=== PATIENT | female | born 1940 | race Caucasian/White ===

== ENCOUNTER 2017-01-04 11:43 | Emergency (ER) | payer OTHER ==
[~2017-01-04] VITALS: Ht 165.1 cm; Wt 88.9 kg
[2017-01-04 13:59] LABS: ABSOLUTE BASOPHIL COUNT 0 /CUMM (0.0-0.2); ABSOLUTE EOSINOPHIL COUNT 0.1 /CUMM (0.0-0.7); ABSOLUTE GRANULOCYTE CT 4.4 /CUMM (1.4-6.5); ABSOLUTE MONOCYTE COUNT 0.5 /CUMM (0.10-0.60); BASOPHIL % 0.1 % (0.0-2.0); EOSINOPHIL % 2.1 % (0-5); GRANULOCYTE % 72.5 % (42.2-75.2); HEMATOCRIT 33.1 % (37-47); MEAN CORPUSCULAR HGB 29.6 PG (27.0-31.0); MEAN CORPUSCULAR HGB CONC 34.6 G/DL (33.0-37.0); MEAN CORPUSCULAR VOLUME 85.7 FL (81.0-99.0); MEAN PLATELET VOLUME 7.7 FL (7.4-10.4); RED BLOOD CELL CT 3.86 /CUMM (4.20-5.40); WHITE BLOOD CELL COUNT 6.1 /CUMM (4.8-10.8)
[2017-01-04 14:19] LABS: PLATELET COUNT 154 /CUMM (130-400)
--- NOTE | 2017-01-04 14:40 | CT SCAN REPORT ---
EXAMINATION: CT HEAD WITHOUT CONTRAST CLINICAL INFORMATION: Altered mental status. COMPARISON: None. TECHNIQUE: Contiguous axial imaging was performed from the skull base to vertex without intravenous administration of contrast. DLP: 600 mGy-cm FINDINGS: Noncontrast CT imaging of the brain demonstrates age-appropriate generalized parenchymal volume loss with proportional prominence of the sulci and ventricles. There is no acute intracranial hemorrhage, mass or mass effect or abnormal extra-axial fluid collections. There are no focal areas of hypoattenuation in a vascular distribution to suggest acute transcortical ischemia. Areas of hypoattenuation within the periventricular and deep cortical white matter are nonspecific but could reflect sequela of mild chronic microvascular ischemia. No acute calvarial abnormality. The mastoid air cells and visualized portions of the paranasal sinuses are well-aerated. IMPRESSION: 1. No acute intracranial abnormality. 2. Generalized parenchymal volume loss and sequela of mild chronic microvascular ischemia.
--- NOTE | 2017-01-04 14:40 | RADIOLOGY REPORT ---
EXAMINATION: XR PORTABLE CHEST CLINICAL INFORMATION: Altered mental status. COMPARISON: None. TECHNIQUE: Portable AP view of the chest was obtained. FINDINGS: The lungs are mildly hypoinflated but clear without focal airspace consolidation. No pleural effusions or pneumothoraces are identified. Cardiomediastinal contours are within normal limits. Soft tissues are unremarkable. No acute osseous abnormality is identified. IMPRESSION: No acute pulmonary process.
--- NOTE | 2017-01-04 14:59 | ED AMS/SEIZURE/WEAK/DIZZY ---
History of Present Illness General Chief Complaint: Female Urogenital Problems Stated Complaint: ? UTI Source: patient, old records Exam Limitations: no limitations Vital Signs & Intake/Output Vital Signs & Intake/Output Vital Signs Date Time Temp Pulse Resp B/P Pulse O2 O2 Flow FiO2 Ox Delivery Rate 01/04 1520 50 100/60 01/04 1520 97.7 52 20 100/60 97 Room Air 01/04 1509 96 Room Air 01/04 1154 96.8 56 18 115/72 95 Room Air Allergies Coded Allergies: Sulfa (Sulfonamide Antibiotics) (Severe, RASH 01/04/17) Tetracyclines (Severe, RASH 01/04/17) bee pollen (Severe, SWELLING 01/04/17) latex (Severe, RASH 01/04/17) Reconcile Medications Aspirin (Aspirin*) 81 MG TAB.CHEW 1 TAB PO DAILY HEART HEALTH (Reported) Clopidogrel Bisulfate (Clopidogrel) 75 MG TABLET 1 TAB PO DAILY BLOOD THINNER (Reported) Cyanocobalamin/FA/Pyridoxine (Folic Acid-Vit B6-Vit B12 Tab) 500 MCG-2.2 MG-25 MG TABLET 1 TAB PO DAILY SUPPLEMENT (Reported) Docusate Sodium (Colace) 100 MG CAPSULE 1 CAP PO DAILY CONSTIPATION (Reported ) Ezetimibe (Zetia) 10 MG TABLET 1 TAB PO DAILY CHOLESTEROL (Reported) Fludrocortisone Acetate 0.1 MG TABLET 1 TAB PO BID UNKNOWN (Reported) Glimepiride 4 MG TABLET 1 TAB PO 1200 DIABETES (Reported) Magnesium Oxide 400 MG TABLET 1 TAB PO BID SUPPLEMENT (Reported) Memantine HCl (Namenda XR) 28 MG CAP.SPR.24 1 CAP PO DAILY DEMENTIA (Reported ) Midodrine HCl 5 MG TABLET 1 TAB PO Q6 HTN (Reported) Pravastatin Sodium 80 MG TABLET 1 TAB PO DAILY CHOLESTEROL (Reported) Sennosides (Senna) 8.6 MG TABLET 1 TAB PO DAILY CONSTIPATION (Reported) Sertraline HCl 100 MG TABLET 1 TAB PO DAILY MENTAL HEALTH (Reported) Triage Note: 76 Y/O FEMALE, WITH HX ALZHEIMERS, PRESENTS WITH WORKFORCE ANALYST FOR EVAL OF ? UTI. WORKFORCE ANALYST STATES HE HAS NOTICED PT IS WEAKER AND THERE IS A STRONG ODOR TO URINE. HE TRIED TO GET A URINE SAMPLE BUT WAS UNSUCCESSFUL AND BELIEVES PT NEEDS TO BE CATHED. PT DENIES COMPLAINTS. WORKFORCE ANALYST DENIES N/V/D OR CHANGES IN APPETITE. DENIES FEVERS. Triage Nurses Notes Reviewed? yes Onset: Abrupt Duration: week(s): (1), constant, continues in ED Timing: recent history Injury Environment: home No Modifying Factors: none HPI: 76-year-old female with a history of Alzheimer's dementia brought to the emergency room for increased confusion has been going on for the past week. Family reports that she's just been more confused in general. She is been making statements that are not making sense in regards to some visual hallucinations. Son denies any fever chills. No vomiting. She is acting appropriate at the moment. There is been no new medication changes. There is been no falls. (SWETHA HUBBARD) Past History Travel History Traveled to [place] past 21 day No Medical History Any Pertinent Medical History? 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 No (SWETHA HUBBARD) Review of Systems Review of Systems Constitutional: Reports: no symptoms. EENTM: Reports: no symptoms. Respiratory: Reports: no symptoms. Cardiovascular: Reports: no symptoms. GI: Reports: no symptoms. Genitourinary: Reports: no symptoms. Musculoskeletal: Reports: no symptoms. Skin: Reports: no symptoms. Neurological/Psychological: Reports: see HPI. Hematologic/Endocrine: Reports: no symptoms. Immunologic/Allergic: Reports: no symptoms. All Other Systems: Reviewed and Negative (SWEHTA HUBBARD) Physical Exam Physical Exam General Appearance: well developed/nourished, no apparent distress, alert Head: atraumatic Eyes: Bilateral: normal appearance, EOMI. Ears, Nose, Throat: normal ENT inspection, hearing grossly normal Neck: normal inspection Respiratory: normal breath sounds, no respiratory distress Cardiovascular: regular rate/rhythm Gastrointestinal: soft, non-tender Back: normal inspection, normal range of motion Extremities: normal range of motion Neurologic/Psych: awake, alert, normal mood/affect, disoriented x 3 Skin: intact, normal color Core Measures ACS in differential dx? No CVA/TIA Diagnosis: No Severe Sepsis Present: No Septic Shock Present: No (JANEL JACOB,SWETHA) Progress Differential Diagnosis: arrythmia, alcohol intoxication, anemia, benign positional vertigo, CVA/stroke, dehydration, drug intoxication, encephalitis, GI bleed, hypoxia, intracranial Hem., intracranial mass/tumor, labrynthitis, pneumonia, postural hypotension, presyncope, post-traumatic vertigo, sepsis, seizure disorder, subarachnoid Hem., UTI/pyelo Plan of Care: Orders Procedure Date/time Status Add-on Test (ER Only) 01/04 1542 Active TROPONIN LEVEL 01/04 1258 Complete COMPREHENSIVE METABOLIC PANEL 01/04 1258 Complete CBC WITHOUT DIFFERENTIAL 01/04 1258 Complete EKG 01/04 1258 Active CULTURE,URINE 01/04 1235 Active URINALYSIS 01/04 1151 Complete Laboratory Tests 01/04/17 1345: Anion Gap 9, Estimated GFR 44 L, BUN/Creatinine Ratio 33.3 H, Glucose 195 H, Calcium 9.1, Total Bilirubin 0.9, AST 40 H, ALT 46, Alkaline Phosphatase 80, Troponin I < 0.01, Total Protein 6.7, Albumin 3.8, Globulin 2.9, Albumin/ Globulin Ratio 1.3, CBC w Diff NO MAN DIFF REQ, RBC 3.86 L, MCV 85.7, MCH 29.6, RDW 14.0, MPV 7.7, Gran % 72.5, Lymphocytes % 16.3 L, Monocytes % 9.0, Eosinophils % 2.1, Basophils % 0.1, Absolute Granulocytes 4.4, Absolute Lymphocytes 1.0 L, Absolute Monocytes 0.5, Absolute Eosinophils 0.1, Absolute Basophils 0, PUBS MCHC 34.6 01/04/17 1235: Urinalysis LIGHT H, Urine Color YEL, Urine Clarity CLEAR, Urine pH 7.0, Ur Specific [place] 1.015, Urine Protein TRACE H, Urine Ketones NEG, Urine Nitrite NEG, Urine Bilirubin NEG, Urine Urobilinogen 0.2, Ur Leukocyte Esterase NEG, Ur Microscopic SEDIMENT EXAMINED, Urine RBC 1-3, Urine WBC 1-3 H, Ur Epithelial Cells FEW, Urine Mucus FEW, Urine Hemoglobin NEG, Urine Glucose 100 H Microbiology 01/04 1235 URINE ROUT: Urine Culture - RECD Diagnostic Imaging: Viewed by Me: Radiology Read, CT Scan. Discussed w/RAD: Radiology Read, CT Scan. Radiology Impression: SERVICE DATE: 01/04/17 EXAM TYPE: RAD - XRY- PORTABLE CHEST XRAY EXAMINATION: XR PORTABLE CHEST CLINICAL INFORMATION: Altered mental status. COMPARISON: None. TECHNIQUE: Portable AP view of the chest was obtained. FINDINGS: The lungs are mildly hypoinflated but clear without focal airspace consolidation. No pleural effusions or pneumothoraces are identified. Cardiomediastinal contours are within normal limits. Soft tissues are unremarkable. No acute osseous abnormality is identified. IMPRESSION: No acute pulmonary process., EXAM TYPE: CAT - CT HEAD WO IV CONTRAST EXAMINATION: CT HEAD WITHOUT CONTRAST CLINICAL INFORMATION: Altered mental status. COMPARISON: None. TECHNIQUE: Contiguous axial imaging was performed from the skull base to vertex without intravenous administration of contrast. DLP: 600 mGy-cm FINDINGS: Noncontrast CT imaging of the brain demonstrates age-appropriate generalized parenchymal volume loss with proportional prominence of the sulci and ventricles. There is no acute intracranial hemorrhage, mass or mass effect or abnormal extra-axial fluid collections. There are no focal areas of hypoattenuation in a vascular distribution to suggest acute transcortical ischemia. Areas of hypoattenuation within the periventricular and deep cortical white matter are nonspecific but could reflect sequela of mild chronic microvascular ischemia. No acute calvarial abnormality. The mastoid air cells and visualized portions of the paranasal sinuses are well-aerated. IMPRESSION: 1. No acute intracranial abnormality. 2. Generalized parenchymal volume loss and sequela of mild chronic microvascular ischemia. DICTATED BY: KENNEDI KAUFFMAN MD DATE/TIME DICTATED:01/04/171428 SHAKER PLATE OPERATOR:TERESO Initial ED EKG: normal intervals, normal p-waves, normal sinus rhythm, rate (51) Comments: 01/04/2017 4:36:24 PM Patient is alert here. She does not appear to be in any type of distress. I feel symptoms are likely related to progressive Alzheimer's dementia. Patient is at her baseline according to son right now. Family feels comfortable taking the patient home. Son has no intention of placing the patient in a custodial. At this time patient does not need to be admitted to the hospital. Close observation at home. Home health aide was set up at home with case management. Shared decision making. Family is in agreement with plan of care. Case discussed with Dr. rivera. (SWETHA HUBBARD) Departure Departure Disposition: HOME OR SELF CARE Condition: Stable Clinical Impression Primary Impression: Alzheimer's dementia Referrals: KATARINA VERAS,LISE Meredith (PCP/Family) Additional Instructions: Follow-up with primary care doctor. Return to the emergency room immediately if any concerns worsening symptoms. Please go over all results of today's visit with your primary care doctor. Contact your primary care doctor to let them know you were here in the emergency room. There may be nonspecific findings which may not be related to your visit today here in the emergency room but may require further evaluation and chronic monitoring by your primary care doctor. If you had a laceration today the chance of foreign body always remains. You should follow-up with your primary care doctor for recheck in 3-5 days for a wound check. If you had an x-ray done there is a chance that a fracture could have been missed on initial read and you should follow-up with your primary care doctor for repeat x-rays if symptoms persist. If your blood pressure was elevated here in the emergency room please have rechecked by her primary care doctor within the next 48 hours by your primary care doctor. If you were prescribed a narcotic here in the emergency room or any type of controlled substances you're not allowed to drive while taking this medication or operate any type of heavy machinery. Narcotics can make you feel lightheaded dizziness nausea and can cause constipation. You may need to hop picker a stool softener. Thank you for choosing [facility] emergency room. Please return to the emergency room immediately if you have any other concerns worsening of symptoms. Departure Forms: Customer Survey General Discharge Information (SWETHA HUBBARD) PA/FLAME CHANNELER Co-Sign Statement Statement: ED Attending supervision documentation- [X] I saw and evaluated the patient. I have also reviewed all the pertinent lab results and diagnostic results. I agree with the findings and the plan of care as documented in the PA's/FLAME CHANNELER's documentation. [X] I have reviewed the ED Record and agree with the PA's/FLAME CHANNELER's documentation. [] Additions or exceptions (if any) to the PAs/FLAME CHANNELER's note and plan are summarized below: [] (KAITLYNN VERAS,CLAUDIO)
[2017-01-04] MEDS ORDERED: FLUDROCORTISON0.1 M1 PO (15:19)
[2017-01-04] MEDS ORDERED: SERTRALINE HCL100 MG PO (15:19)
[2017-01-04] MEDS ORDERED: ZETIA10 M1 PO (15:19)
[2017-01-04] MEDS ORDERED: GLIMEPIRIDE4 M1 PO (15:19)
[2017-01-04 15:20] VITALS: BP 100/60
[2017-01-04] MEDS ORDERED: MIDODRINE HCL5 M1 PO (15:20)
[2017-01-04] MEDS ORDERED: CLOPIDOGREL75 M1 PO (15:20)
[2017-01-04] MEDS ORDERED: PRAVASTATIN SOD80 M2 PO (15:20)
[2017-01-04] MEDS ORDERED: MAGNESIUM OXID400 M1 PO (15:21)
[2017-01-04] MEDS ORDERED: NAMENDA XR28 M1 PO (15:21)
[2017-01-04] MEDS ORDERED: FOLIC ACID-VIT1 EAC1 PO (15:21)
[2017-01-04] MEDS ORDERED: SENNA8.6 M3 PO (15:22)
[2017-01-04] MEDS ORDERED: ASPIRIN81 M4 PO (15:22)
[2017-01-04] MEDS ORDERED: COLACE100 M1 PO (15:22)
--- NOTE | 2017-01-05 11:50 | NUR ---
01/05 CASE MGMT- CALL FROM PT SON REGARDING NE VISITING DAY AND MADE AWARE SCHEDULED TO GO OUT FOR MONDAY TO EVALUATE PT NEEDS. PT SON ALSO REQUESTS NE CONTACT HIS CELL PHONE TOMORROW [phone] CONFIRMED WITH PT SON AND WAS GIVEN TO MAO GLEZ AND INFORMED TO CONTACT HIM TO SET UP TIME FOR TOMORROW.
== END 2017-01-04 16:46 ==
LOC: ERH 11:43
PROVIDERS: Physician Assistant Medical
DX: G30.9 Alzheimer's disease, unspecified (principal)
CPT/HCPCS: 81001; 87086; 93005; 93010